=== PATIENT | male | born 1965 | race American Indian/Alaskan Native ===

== ENCOUNTER 2018-12-02 16:55 | Inpatient (IN) | payer MEDICAID ==
[2018-12-02 17:41] LABS: BASO % 0.6 % (0.0-2.0); EOS # 0.1 K/uL (0.0-0.7); EOS % 3.1 % (0.0-4.0); HEMOGLOBIN 16.2 g/dL (12.0-18.0); LYMPH # 1.3 K/uL (1.0-4.3); LYMPH % 36.3 % (20.0-40.0); MEAN CELL VOLUME 83.1 fL (80.0-94.0); MEAN CORPUSCULAR HEMOGLOBIN 26.4 pg (27.0-31.0); MEAN CORPUSCULAR HGB CONC 31.8 g/dL (33.0-37.0); MEAN PLATELET VOLUME 8.4 fL (7.2-11.7); MONO # 0.4 K/uL (0.0-0.8); MONO % 11.1 % (0.0-10.0); NEUT # 1.7 K/uL (1.8-7.0); NEUT % 48.9 % (50.0-75.0); NRBC % 0.1 % (0.0-2.0); RBC 6.12 Mil/uL (4.40-5.90); RED CELL DISTRIBUTION WIDTH 16.5 % (11.5-14.5); WHITE BLOOD COUNT 3.6 K/uL (4.8-10.8)
[2018-12-02 17:46] LABS: URINE BILIRUBIN NEGATIVE (NEGATIVE); URINE BLOOD NEGATIVE (NEGATIVE); URINE CLARITY Clear (Clear); URINE COLOR Yellow (YELLOW); URINE GLUCOSE (UA) NORMAL (Normal); URINE LEUKOCYTE ESTERASE NEG Leu/uL (Negative); URINE PROTEIN NEGATIVE (NEGATIVE); URINE UROBILINOGEN NORMAL mg/dL (0.2-1.0)
[2018-12-02 17:53] LABS: ALB/GLOB RATIO 0.9 (1.0-2.1); ALBUMIN 4.6 g/dL (3.5-5.0); ALT/SGPT 30 U/L (21-72); AST/SGOT 72 U/L (17-59); BLOOD UREA NITROGEN 9 mg/dL (9-20); CALCIUM 9.5 mg/dl (8.6-10.4); GFR NON-AFRICAN AMERICAN > 60
[2018-12-02 17:56] LABS: BARBITURATES, UR NEGATIVE (NEGATIVE); BENZODIAZEPINES, UR NEGATIVE (NEGATIVE); PHENCYCLIDINE, UR NEGATIVE (NEGATIVE)
[2018-12-02 18:02] LABS: OPIATES, UR POSITIVE (NEGATIVE)
--- NOTE | 2018-12-02 18:26 | C.PDOC ---
History Of Present Illness 53-year-old male presents to the ED as a prescreen for detox. Patient admits to using multiple drugs. Patient denies suicidal/homicidal ideation and has no physical complaints at this time. <Emma Salinas - Last Filed: 12/02/18 19:01> History Per: Patient History/Exam Limitations: no limitations Onset/Duration Of Symptoms: Hrs Current Symptoms Are (Timing): Still Present Suicide/Self Injury Attempted (Context): None Associated Symptoms: denies: Suicidal Thoughts, Suicidal Plan Involuntary Hold By: None Recent travel outside of the [place]: No Additional History Per: Patient <Emma Salinas - Last Filed: 12/02/18 19:01> <Javier Phillip - Last Filed: 12/02/18 19:07> Time Seen by Provider: 12/02/18 17:20 Chief Complaint (Nursing): Substance Abuse Past Medical History Reviewed: Historical Data, Nursing Documentation, Vital Signs Vital Signs: Last Vital Signs Temp 98.1 F 12/02/18 17:12 Pulse 82 12/02/18 17:12 Resp 20 12/02/18 17:12 BP 134/74 12/02/18 17:12 Pulse Ox 100 12/02/18 17:12 - Medical History PMH: No Chronic Diseases Surgical History: No Surg Hx Family History: States: Unknown Family Hx - Social History Hx Alcohol Use: No Hx Substance Use: No (past use of marijuana) - Immunization History Hx Tetanus Toxoid Vaccination: No Hx Influenza Vaccination: No Hx Pneumococcal Vaccination: No <Emma Salinas - Last Filed: 12/02/18 19:01> Vital Signs: Last Vital Signs Temp 98.1 F 12/02/18 17:12 Pulse 82 12/02/18 17:12 Resp 20 12/02/18 17:12 BP 134/74 12/02/18 17:12 Pulse Ox 100 12/02/18 19:02 <Javier Phillip - Last Filed: 12/02/18 19:07> Review Of Systems Constitutional: Negative for: Fever, Chills Psych: Negative for: Suicidal ideation <Emma Salinas - Last Filed: 12/02/18 19:01> Physical Exam - Physical Exam Appears: Non-toxic, No Acute Distress Skin: Normal Color, Warm, Dry Head: Atraumatic, Normacephalic Eye(s): bilateral: Normal Inspection Oral Mucosa: Moist Neck: Supple Chest: Symmetrical, No Deformity, No Tenderness Cardiovascular: Rhythm Regular, No Murmur Respiratory: Normal Breath Sounds, No Rales, No Rhonchi, No Wheezing Extremity: Normal ROM Neurological/Psych: Oriented x3, Normal Speech, Normal Cognition <Emma Salinas - Last Filed: 12/02/18 19:01> ED Course And Treatment - Laboratory Results Result Diagrams: 12/02/18 17:37 12/02/18 17:37 Lab Results: Total Bilirubin 1.1 mg/dL (0.2-1.3) 12/02/18 17:37 AST 72 U/L (17-59) H 12/02/18 17:37 ALT 30 U/L (21-72) 12/02/18 17:37 Alkaline Phosphatase 415 U/L (38-126) H 12/02/18 17:37 Total Protein 9.8 g/dL (6.3-8.3) H 12/02/18 17:37 Albumin 4.6 g/dL (3.5-5.0) 12/02/18 17:37 Globulin 5.2 gm/dL (2.2-3.9) H 12/02/18 17:37 Albumin/Globulin Ratio 0.9 (1.0-2.1) L 12/02/18 17:37 Urine Color Yellow (YELLOW) 12/02/18 17:37 Urine Clarity Clear (Clear) 12/02/18 17:37 Urine pH 6.0 (5.0-8.0) 12/02/18 17:37 Ur Specific [place] 1.008 (1.003-1.030) 12/02/18 17:37 Urine Protein Negative mg/dL (NEGATIVE) 12/02/18 17:37 Urine Glucose (UA) Normal mg/dL (Normal) 12/02/18 17:37 Urine Ketones Negative mg/dL (NEGATIVE) 12/02/18 17:37 Urine Blood Negative (NEGATIVE) 12/02/18 17:37 Urine Nitrate Negative (NEGATIVE) 12/02/18 17:37 Urine Bilirubin Negative (NEGATIVE) 12/02/18 17:37 Urine Urobilinogen Normal mg/dL (0.2-1.0) 12/02/18 17:37 Ur Leukocyte Esterase Neg Mono/uL (Negative) 12/02/18 17:37 Urine WBC (Auto) < 1 /hpf (0-5) 12/02/18 17:37 Urine RBC (Auto) < 1 /hpf (0-3) 12/02/18 17:37 O2 Sat by Pulse Oximetry: 100 (on RA) Pulse Ox Interpretation: Normal Progress Note: Bloodwork and urinalysis ordered. <Emma Salinas - Last Filed: 12/02/18 19:01> - Laboratory Results Result Diagrams: 12/02/18 17:37 12/02/18 17:37 Lab Results: Total Bilirubin 1.1 mg/dL (0.2-1.3) 12/02/18 17:37 AST 72 U/L (17-59) H 12/02/18 17:37 ALT 30 U/L (21-72) 12/02/18 17:37 Alkaline Phosphatase 415 U/L (38-126) H 12/02/18 17:37 Total Protein 9.8 g/dL (6.3-8.3) H 12/02/18 17:37 Albumin 4.6 g/dL (3.5-5.0) 12/02/18 17:37 Globulin 5.2 gm/dL (2.2-3.9) H 12/02/18 17:37 Albumin/Globulin Ratio 0.9 (1.0-2.1) L 12/02/18 17:37 Urine Color Yellow (YELLOW) 12/02/18 17:37 Urine Clarity Clear (Clear) 12/02/18 17:37 Urine pH 6.0 (5.0-8.0) 12/02/18 17:37 Ur Specific [place] 1.008 (1.003-1.030) 12/02/18 17:37 Urine Protein Negative mg/dL (NEGATIVE) 12/02/18 17:37 Urine Glucose (UA) Normal mg/dL (Normal) 12/02/18 17:37 Urine Ketones Negative mg/dL (NEGATIVE) 12/02/18 17:37 Urine Blood Negative (NEGATIVE) 12/02/18 17:37 Urine Nitrate Negative (NEGATIVE) 12/02/18 17:37 Urine Bilirubin Negative (NEGATIVE) 12/02/18 17:37 Urine Urobilinogen Normal mg/dL (0.2-1.0) 12/02/18 17:37 Ur Leukocyte Esterase Neg Mono/uL (Negative) 12/02/18 17:37 Urine WBC (Auto) < 1 /hpf (0-5) 12/02/18 17:37 Urine RBC (Auto) < 1 /hpf (0-3) 12/02/18 17:37 <Javier Phillip - Last Filed: 12/02/18 19:07> Disposition - Disposition Disposition Time: 19:02 <Emma Salinas - Last Filed: 12/02/18 19:01> Discussed With DrEdi: Cheryl Singh - POA Present On Arrival: None <Javier Phillip - Last Filed: 12/02/18 19:07> - Disposition Disposition: HOSPITALIZED Condition: STABLE Forms: [facility] (L[place]anese) - Clinical Impression Clinical Impression: Drug dependence - PA / FIRE ENGINEER / Resident Statement MD/DO has reviewed & agrees with the documentation as recorded. - Scribe Statement The provider has reviewed the documentation as recorded by the Scribe (Juliet Rivera) All medical record entries made by the Scribe were at my direction and personally dictated by me. I have reviewed the chart and agree that the record accurately reflects my personal performance of the history, physical exam, medical decision making, and the department course for this patient. I have also personally directed, reviewed, and agree with the discharge instructions and dis position. <Emma Salinas - Last Filed: 12/02/18 19:01> Physician Patient Turnover Patient Signed Over To: Javier Phillip Handoff Comments: pending detox acceptance <Emma Salinas - Last Filed: 12/02/18 19:01>
--- NOTE | 2018-12-02 19:31 | PCM.BM ---
<Tee Nix - Last Filed: 12/02/18 19:29> Treatment Plan Problems - Problems identified on initial assessmt chronic low self esteem Date Initiated: 12/02/18 Time Initiated: 19:30 Assessment reference: NA Status: Active defensive coping Date Initiated: 12/02/18 Time Initiated: 19:31 Assessment reference: NA Status: Active denial Date Initiated: 12/02/18 Time Initiated: 19:31 Assessment reference: NA Status: Active Treatment assets and liabiliti Patient Assests: cooperative, cognitively intact Patient Liabilities: substance abuse - Milieu Protocol Maintain good personal hygiene: daily Encourage regular showers, daily Remind patient to perform daily oral care, daily Assist patient to perform ADL's Conduct patient checks and document Observation sheet: Q15 minutes Maintain personal safety: every shift Educate patient to report safety concerns to staff, every shift Monitor environment for contraband/sharps Medication safety: Monitor for expected outcome, potential side effects: every shift, Assess barriers to learning: every shift, Assess readiness for medication education: every shift <Sabino Montemayor - Last Filed: 12/03/18 14:03> - Diagnosis (1) Opioid use disorder, severe, dependence Status: Acute Interventions: 12/03/18 14:03 * Assess 7x/week regarding severity of withdrawal * Educate regarding risks, benefits, side effects and alternatives of medications * Use Motivational Interviewing for abstinence * Use CBT for relapse prevention * Medication management for withdrawal symptoms * Encourage medication assisted treatment *
[2018-12-03] MEDS ORDERED: Aluminum Hydroxide/Magnesium Hydroxide Susp (30 mL) PO PRN (10:19)
--- NOTE | 2018-12-03 10:22 | PCM.PSYCH ---
Initial Psychiatric Evaluation - Initial Psychiatric Evaluation Type of Admission: Voluntary Legal Status: Capacity Chief Complaint (in patient's own words): "I am so sick, I can't stand it anymore" History of Present Illness and Precipitating Events: The pt is seen, chart reviewed, case discussed He is a 53 y/o AAM, single with 4 children (6, 12, 19 and 33), unemployed and homeless, on SSI due to his knee. Poor historian as he is irate He admits to using 10-12 bags of iv heroin for more than 20 years. He had 3 years sober time the longest, "long ago" He denies painkiller or Fentanyl use He inhales cocaine on and off, smokes 10 cig Drinks 3-4 x a week but he drinks 24 oz beers (3-4 of them) plus 1 pint vodka. He has had wdw sxs but nothing severe he claims MJ - occasionally This is his 2nd detox and no rehabs, no MAT He has significant wdw sxs, COWS is 12+ He had possible OD but no narcan. Feels angry, irate and depressed, but no psych tx in the past, no SI in the past. He said he wished he were and he also thought he was dying before he came here. He was [place] [facility] 1 [place] b/c of HI and SI. He is vague and denies taking any psych meds lately. Knee replacement as medical. RA too. Non-compliant No family psych hx Current Medications: Active Medications Generic Name Dose Route Start Last Admin Trade Name Freq PRN Reason Stop Dose Admin Al Hydrox/Mg Hydrox/Simethicone 30 ml 12/03/18 10:19 Maalox 30 Ml PO TID PRN Indigestion / Heartburn Clonidine HCl 0.1 mg 12/03/18 10:19 Catapres PO Q4 PRN COWS Score More or Equal to 5 Gabapentin 300 mg 12/03/18 14:00 Neurontin PO TID FABIOLA Hydroxyzine HCl 50 mg 12/03/18 14:00 Atarax PO QID FABIOLA Ibuprofen 600 mg 12/03/18 10:19 Motrin Tab PO Q6 PRN Pain, moderate (4-7) Loperamide HCl 2 mg 12/03/18 10:19 Imodium PO Q8 PRN Diarrhea Methadone HCl 0 mg 12/03/18 10:00 Methadone PO 12/08/18 09:59 Q24H FABIOLA Taper Ondansetron HCl 4 mg 12/03/18 10:19 Zofran Tab PO Q8 PRN Nausea/Vomiting Trazodone HCl 100 mg 12/03/18 22:00 Desyrel PO HS FABIOLA Past Psychiatric History - Past Psychiatric History Previous Treatment History: Inpatient Pertinent Medical Hx (Current Medical&Sleep Prob, Allergies): Allergies Allergy/AdvReac Type Severity Reaction Status Date / Time No Known Allergies Allergy Verified 09/21/15 12:15 No Known Home Med 12/02/18 Review of Systems - Psychiatric Psychiatric: Abnormal Sleep Pattern, Anhedonia, Anxiety, Auditory Hallucinations, Depression, Difficulty Concentrating, Hopelessness, Irritability, Mood Swings. absent: Hallucinations, Homicidal Ideation, Paranoia, Suicidal Ideation Mental Status Examination - Personal Presentation Personal Presentation: Looks older than stated age - Affect Affect: Constricted - Motor Activity Motor Activity: Calm - Reliability in Providing Information Reliability in Providing Information: Fair - Speech Speech: Organized - Mood Mood: Depressed, Anxious - Formal Thought Process Formal Thought Process: No Impairment - Cognitive Functions Orientation: Person, Place, Situation, Time Sensorium: Alert Attention/Concentration: Easily distracted Abstract Thinking: [place] Estimate of Intelligence: Below average Judgement: Intact, as evidence by: Insight regarding need for hospitalization Memory: Recent intact, as evidence by: Ability to recall events of the day, Remote impaired as evidenced by: Inability to recall sig life events - Risk Risk: Withdrawal, Diminished functioning - Strength & Assets Inventory Strength & Assets Inventory: Cooperative - Limitations Limitations: Other DSM 5 DX - DSM 5 DSM 5 Diagnosis: Opioid withdrawal Opioid use d/o - severe Cocaine use d/o - moderate Major depression, single, moderate Cannabis use d/o - severe Tobacco use d/o - severe Alcohol use d/o - severe - Recommended/Plan of Treatment Treatment Recommendations and Plan of Treatment: Taper with methadone Rremeron for depression Watch for alcohol wdw sxs Gabapentin for augmentation for anxiety and cannabis/cocaine use As needed medications All risks, benefits and alternatives of the meds discussed, and the pt agreed and understood. Attend groups and activities Supportive therapy and psychoeducation ID for abstinence CBT for relapse prevention Encourage MAT Refer to rehab or IOP, and self-help groups Teach healthy lifestyle methods, i.e. diet, exercise, meditation Smoking cessation with ID Nicotine patch if needed 34 min Projected ELOS: 5 days Prognosis: good - Smoking Cessation Smoking Cessation Initiated: Yes
--- NOTE | 2018-12-04 14:58 | PCM.PYCHPN ---
Psychiatric Progress Note - Psychiatric Progress Note Patient Chief Complaint: "I am so sick, I can't stand it anymore" Medication Change: Yes Medical Record Reviewed: Yes Mental Status Examination - Cognitive Function Orientation: Person, Place, Situation, Time - Mood Mood: Depressed, Anxious - Affect Affect: Constricted - Formal Thought Process Formal Thought Process: No Impairment Goal/Treatment Plan - Goal/Treatment Plan Progress Toward Problem(s) and Goals/Treatment Plan: Taper with methadone Rremeron for depression Watch for alcohol wdw sxs Gabapentin for augmentation for anxiety and cannabis/cocaine use As needed medications All risks, benefits and alternatives of the meds discussed, and the pt agreed and understood. Attend groups and activities Supportive therapy and psychoeducation MA for abstinence CBT for relapse prevention Encourage MAT Refer to rehab or IOP, and self-help groups Teach healthy lifestyle methods, i.e. diet, exercise, meditation Smoking cessation with MA Nicotine patch if needed 34 min
--- NOTE | 2018-12-05 23:47 | PCM.PYCHPN ---
Psychiatric Progress Note - Psychiatric Progress Note Patient Chief Complaint: "I am so sick, I can't stand it anymore" Medication Change: Yes Medical Record Reviewed: Yes Mental Status Examination - Cognitive Function Orientation: Person, Place, Situation, Time - Mood Mood: Depressed, Anxious - Affect Affect: Constricted - Formal Thought Process Formal Thought Process: No Impairment Goal/Treatment Plan - Goal/Treatment Plan Progress Toward Problem(s) and Goals/Treatment Plan: Taper with methadone Rremeron for depression Watch for alcohol wdw sxs Gabapentin for augmentation for anxiety and cannabis/cocaine use As needed medications All risks, benefits and alternatives of the meds discussed, and the pt agreed and understood. Attend groups and activities Supportive therapy and psychoeducation NV for abstinence CBT for relapse prevention Encourage MAT Refer to rehab or IOP, and self-help groups Teach healthy lifestyle methods, i.e. diet, exercise, meditation Smoking cessation with NV Nicotine patch if needed 34 min
--- NOTE | 2018-12-06 15:26 | PCM.PYCHPN ---
Psychiatric Progress Note - Psychiatric Progress Note Patient seen today, length of contact: 16 min Patient Chief Complaint: "I am so sick, I can't stand it anymore" Medication Change: Yes Medical Record Reviewed: Yes Mental Status Examination - Cognitive Function Orientation: Person, Place, Situation, Time - Mood Mood: Depressed, Anxious - Affect Affect: Constricted - Formal Thought Process Formal Thought Process: No Impairment Goal/Treatment Plan - Goal/Treatment Plan Progress Toward Problem(s) and Goals/Treatment Plan: Taper with methadone Rremeron for depression Watch for alcohol wdw sxs Gabapentin for augmentation for anxiety and cannabis/cocaine use As needed medications All risks, benefits and alternatives of the meds discussed, and the pt agreed and understood. Attend groups and activities Supportive therapy and psychoeducation [place] for abstinence CBT for relapse prevention Encourage MAT Refer to rehab or IOP, and self-help groups Teach healthy lifestyle methods, i.e. diet, exercise, meditation Smoking cessation with NM Nicotine patch if needed 34 min
[2018-12-06 16:39] VITALS: RESP 18
--- NOTE | 2018-12-07 08:44 | PCM.PYCHDC ---
Mental Status Examination - Mental Status Examination Orientation: Person Discharge Summary - Discharge Note Consultations:: List each consultation separately and include: 1. Reason for request. 2. Findings. 3. Follow-up Summary of Hospital Course include:: 1. Description of specific treatment plan utilized for patients during their course of treatmen. 2. Summarize the time- course for resolution of acute symptoms and/or regressed behaviors. 3. Describe issues identified and worked on during hospitalization. 4. Describe medication utilized. 5. Describe medical problems identified and treated. 6. Reassessment of suicide risk Summary of Hospital Course: The pt is seen, chart reviewed, case discussed He is a 53 y/o AAM, single with 4 children (6, 12, 19 and 33), unemployed and homeless, on SSI due to his knee. Poor historian as he is irate He admits to using 10-12 bags of iv heroin for more than 20 years. He had 3 years sober time the longest, "long ago" He denies painkiller or Fentanyl use He inhales cocaine on and off, smokes 10 cig Drinks 3-4 x a week but he drinks 24 oz beers (3-4 of them) plus 1 pint vodka. He has had wdw sxs but nothing severe he claims MJ - occasionally This is his 2nd detox and no rehabs, no MAT He has significant wdw sxs, COWS is 12+ He had possible OD but no narcan. Feels angry, irate and depressed, but no psych tx in the past, no SI in the past. He said he wished he were and he also thought he was dying before he came here. He was admitted at [facility] [place] psych within 1 year b/c of HI and SI. He is vague and denies taking any psych meds lately. Knee replacement as medical. RA too. Non-compliant No family psych hx He says he will consider going to [facility] but he is not sure. He was unmotivated and isolated. - Diagnosis (1) Opioid use disorder, severe, dependence Current Visit: Yes Status: Acute - Final Diagnosis (DSM 5) Condition upon Discharge: STABLE Disposition: HOME/ ROUTINE Follow-up Treatment Plan: Taper with methadone Rremeron for depression Watch for alcohol wdw sxs Gabapentin for augmentation for anxiety and cannabis/cocaine use As needed medications All risks, benefits and alternatives of the meds discussed, and the pt agreed and understood. Attend groups and activities Supportive therapy and psychoeducation [place] for abstinence CBT for relapse prevention Encourage MAT Refer to rehab or IOP, and self-help groups Teach healthy lifestyle methods, i.e. diet, exercise, meditation Smoking cessation with [place] Nicotine patch if needed 34 min Prescriptions/Medication Reconciliation: Gabapentin [Neurontin] 300 mg PO BID #60 cap hydrOXYzine HCl [Atarax] 50 mg PO DAILY PRN #30 tab PRN Reason: Anxiety Mirtazapine [Remeron] 15 mg PO HS #30 tab traZODone [Desyrel] 100 mg PO HS #30 tab
[2018-12-07 08:57] VITALS: BP 129/85; PULSE 69; TEMP 97.9; O2SAT 98
== END 2018-12-07 10:45 | disposition home or self-care (01) | DRG 745 ==
LOC: C.ER 16:55 → C.7D 19:07 → OBSVTOIN 12-03 10:18
PROVIDERS: ADMIT Psychiatry & Neurology Psychiatry; ATTEND Psychiatry & Neurology Psychiatry
PROC: HZ52ZZZ Individual Psychotherapy for Substance Abuse Treatment, Cognitive-Behavioral (ICD-10-PCS; principal; 2018-12-03)
PROC: HZ2ZZZZ Detoxification Services for Substance Abuse Treatment (ICD-10-PCS; 2018-12-03)
PROC: HZ59ZZZ Individual Psychotherapy for Substance Abuse Treatment, Supportive (ICD-10-PCS; 2018-12-03)
PROC: HZ56ZZZ Individual Psychotherapy for Substance Abuse Treatment, Psychoeducation (ICD-10-PCS; 2018-12-03)
PROC: HZ46ZZZ Group Counseling for Substance Abuse Treatment, Psychoeducation (ICD-10-PCS; 2018-12-03)
PROC: GZHZZZZ Group Psychotherapy (ICD-10-PCS; 2018-12-03)
PROC: GZ58ZZZ Individual Psychotherapy, Cognitive-Behavioral (ICD-10-PCS; 2018-12-03)
PROC: GZ56ZZZ Individual Psychotherapy, Supportive (ICD-10-PCS; 2018-12-03)
PROC: HZ42ZZZ Group Counseling for Substance Abuse Treatment, Cognitive-Behavioral (ICD-10-PCS; 2018-12-03)
DX: F11.23 Opioid dependence with withdrawal (principal); F14.20 Cocaine dependence, uncomplicated; F10.20 Alcohol dependence, uncomplicated; F12.20 Cannabis dependence, uncomplicated; F17.210 Nicotine dependence, cigarettes, uncomplicated; Y90.2 Blood alcohol level of 40-59 mg/100 ml; F32.1 Major depressive disorder, single episode, moderate; F41.9 Anxiety disorder, unspecified; Z91.19 Patient's noncompliance with other medical treatment and regimen; Z96.659 Presence of unspecified artificial knee joint; Z59.0 Homelessness